=== PATIENT | female | born 1960 | race Caucasian/White ===

== ENCOUNTER 2016-11-29 09:17 | Emergency (ER) | payer OTHER ==
[~2016-11-29] VITALS: Ht 160 cm; Wt 65.8 kg
[2016-11-29] MEDS ORDERED: HYDROMORPHONE 1 MG/1 ML DISP.SYRIN ONE (09:22)
[2016-11-29] MEDS ORDERED: ONDANSETRON HCL/PF 4 MG/2 ML VIAL ONE (09:22)
--- NOTE | 2016-11-29 09:25 | NUR ---
PT REBECCA FROM HOME S/P TRIP AND FALL. DENIES KO. DENIES HEAD TRAUMA. COMPLAINS OF LEFT SHOULDER PAIN AND LEG ACHES. PT [id number]. MD AT FOR EVAL. VSS. SAFETY AND COMFORT MEASURES PROVIDED. WILL MONITOR.
[2016-11-29] MEDS ORDERED: ONDANSETRON HCL/PF 4 MG/2 ML VIAL IVP ONE (09:30)
[2016-11-29] MEDS ORDERED: HYDROMORPHONE INJ 2 MG/ML DISP.SYRIN IV ONE (09:30)
[2016-11-29] MEDS ORDERED: IV SET PRIMARY PUMP SET 1 EA INFUS.SET MC ONE (09:39)
[2016-11-29] MEDS ORDERED: PROPOFOL 20 ML IV ONE (09:39)
[2016-11-29] MEDS ORDERED: IV NS 0.9% 500 ML IV ONE (09:39)
--- NOTE | 2016-11-29 09:40 | NUR ---
HUSSAIN TSAI AT BS.
--- NOTE | 2016-11-29 09:50 | NUR ---
CLOSED REDUCTION UNDER MODERATE SEDATION BY DR. GAMBLE. CONSENT SIGNED BY PATTIENT, VERBALIZES UNDERSTANDING OF PROCEDURE. ALL QUESTIONS ANSWERED.
[2016-11-29] MEDS ORDERED: NALOXONE HCL 0.4 MG/ML AMPUL ONE (09:54)
--- NOTE | 2016-11-29 09:58 | NUR ---
RECEIVED VERBAL ORDERS FROM DR. GAMBLE FOR 0.4MG NARCAN. ORDERS CARRIED OUT.
--- NOTE | 2016-11-29 10:09 | NUR ---
PT AWAKE, ALERT AND ORIENTED. SHOULDER IMMOBILIZER IN PLACE. VSS. PT ON OXYGEN VIA NC, RT REMAINS AT BS. WILL MONITOR.
--- NOTE | 2016-11-29 10:54 | NUR ---
Dr Sharpe at for an update and re-eval.
[2016-11-29 11:10] VITALS: BP 156/66
--- NOTE | 2016-11-29 11:10 | NUR ---
Patient discharged to home in stable condition. Written and verbal after care instructions given. Patient verbalizes understanding of instruction.
--- NOTE | 2016-11-29 11:10 | NUR ---
IV removed. Catheter intact and site benign. Pressure and 4x4 applied to site. No bleeding noted.
== END 2016-11-29 11:11 | disposition home or self-care (01) ==
LOC: ER 09:18
DX: S42.92XA Fracture of left shoulder girdle, part unspecified, initial encounter for closed fracture (principal); S43.005A Unspecified dislocation of left shoulder joint, initial encounter; R06.81 Apnea, not elsewhere classified; F41.9 Anxiety disorder, unspecified; W18.39XA Other fall on same level, initial encounter; Y93.89 Activity, other specified; Y92.89 Other specified places as the place of occurrence of the external cause; Y99.9 Unspecified external cause status
CPT/HCPCS: 73020; 73030-TC; A4606; J1170; J2310; J2405; J2704; J7040; Z7610

== ENCOUNTER 2019-09-25 20:46 | Emergency (ER) | payer OTHER ==
[~2019-09-25] VITALS: Ht 160 cm; Wt 60.8 kg
--- NOTE | 2019-09-25 21:35 | NUR ---
CALLED TO BE TRIAGED, NO ANSWER
[2019-09-25 21:43] VITALS: BP 127/84
--- NOTE | 2019-09-25 21:57 | NUR ---
URINE COLLECTED AND SENT TO THE LAB
[2019-09-25 22:09] LABS: APPEARANCE,URINE Clear (CLEAR); BILIRUBIN,URINE Negative (NEGATIVE); BLOOD, URINE Trace-intact Ery/uL (NEGATIVE); COLOR,URINE Yellow (YELLOW); KETONES,URINE Trace (NEGATIVE); LEUKOCYTE ESTERASE ,URINE Trace (NEGATIVE); NITRITE, URINE Negative (NEGATIVE); PH,URINE 6.5 (5.0-8.0); PROTEIN,URINE Negative (NEGATIVE); UGLUCOSE Negative (NEGATIVE)
[2019-09-25 22:35] LABS: BACTERIA,URINE Few /HPF (None Seen); RBC,URINE 0-2 /HPF (0-2); SQUAMOUS EPITHELIAL CELL,UR Few /HPF (None Seen)
== END 2019-09-25 22:58 | disposition home or self-care (01) ==
LOC: ER 20:52
DX: N39.0 Urinary tract infection, site not specified (principal); B37.3 Candidiasis of vulva and vagina; Z98.890 Other specified postprocedural states; Z90.89 Acquired absence of other organs
CPT/HCPCS: 81000-TC

== ENCOUNTER 2022-04-16 11:18 | Emergency (ER) | payer OTHER ==
[~2022-04-16] VITALS: Ht 172.7 cm; Wt 59.0 kg
[2022-04-16 11:32] VITALS: BP 142/90
--- NOTE | 2022-04-16 11:35 | NUR ---
DR HAM AT BEDSIDE FOR EVAL
[2022-04-16] MEDS ORDERED: TETRAcaine 5 ML BOTTLE EACHEYE ONE (12:00)
[2022-04-16] MEDS ORDERED: FLUORESCEIN SODIUM OPHTH 1 EA STRIP OP ONE (12:00)
[2022-04-16] MEDS ORDERED: FLUORESCEIN SODIUM OPHTH 1 EA STRIP ONE (12:03)
[2022-04-16] MEDS ORDERED: CIPR2.5D14 RIGHTEYE ×2 (13:08→13:10)
--- NOTE | 2022-04-16 13:14 | NUR ---
Patient discharged to home in stable condition. Written and verbal after care instructions given. Patient verbalizes understanding of instruction.
== END 2022-04-16 13:14 | disposition home or self-care (01) ==
LOC: ER 11:38
DX: S05.01XA Injury of conjunctiva and corneal abrasion without foreign body, right eye, initial encounter (principal); F41.9 Anxiety disorder, unspecified; Z98.890 Other specified postprocedural states; X58.XXXA Exposure to other specified factors, initial encounter; Y93.89 Activity, other specified; Y92.89 Other specified places as the place of occurrence of the external cause; Y99.8 Other external cause status